=== PATIENT | male | born 1970 | race Caucasian/White ===

== ENCOUNTER 2021-02-10 21:50 | Emergency (ER) | payer OTHER ==
[~2021-02-10] VITALS: Ht 182.9 cm; Wt 102.1 kg
[~2021-02-10 21:50] MED LIST: BLOOD PRESSURE MED; LISHYD1012 PO
[2021-02-10] MEDS ORDERED: Robaxin750 MG PO (22:52)
[2021-02-10] MEDS ORDERED: IBU600 MG PO (22:52)
== END 2021-02-10 23:30 | disposition home or self-care (01) ==
LOC: ER 21:50
DX: M25.562 Pain in left knee (principal); I10 Essential (primary) hypertension; Z79.899 Other long term (current) drug therapy
CPT/HCPCS: 29505; 73560-LT; 96374-59; 96375-59; 99284-25; J1885; J3360

== ENCOUNTER 2024-04-13 07:36 | Day surgery (SDC) | payer BC ==
[~2024-04-13] VITALS: Ht 180.3 cm; Wt 107.8 kg
[~2024-04-13 07:36] MED LIST changes: +AMLO10 PO; +CHLO25B PO; +IBU600 MG PO; +LOSA50 PO; +Lactated Ringer's 1,000 ML IV SCH; +PANT40; +Robaxin750 MG PO
[2024-04-13 08:00] VITALS: BP 132/85
--- NOTE | 2024-04-13 08:12 | NUR ---
Ambulatory in Day Surgery. History, Chart, Medications and Allergies reviewed before start of procedure. Lungs clear T/O to Auscultation. Patient confirms NPO status and agrees with scheduled surgery. Patient States Post-Procedure ride home has been arranged.
[2024-04-13] MEDS ORDERED: Midazolam HCl 1MG / ML 2ML Vial ONE (08:24)
[2024-04-13] MEDS ORDERED: FentaNYL Citrate 50 MCG/ML 2 ML Injection ONE (08:25)
[2024-04-13] MEDS ORDERED: propofoL 40 ML IV ONE (08:25)
[2024-04-13] MEDS ORDERED: Benzocaine Oral Spray 0.5ML UD ONE (08:26)
--- NOTE | 2024-04-13 08:36 | NUR ---
04/13/24 0836 Abhijeet Islas History, Chart, Medications and Allergies reviewed before start of procedure. MONITOR INTACT WITH CONTINUOUS PULSE OXIMETRY, CONTINUOUS END TITAL CO2, AND INTERMITTENT BLOOD PRESSURE. 3-LEAD EKG REVIEWED WITH PHYSICIAN PRIOR TO START OF PROCEDURE. O2 VIA POM INTACT THROUGHOUT SEDATION/PROCEDURE. Bite Block Placed. HURRICAINE SPRAY TO OROPHARYX.
[2024-04-13 09:11] VITALS: BP 142/85
[2024-04-13 09:19] VITALS: BP 132/88
--- NOTE | 2024-04-13 09:34 | NUR ---
Patient up to Ambulate independently. Gait steady. Discharge instructions reviewed with patient. Patient verbalizes understanding. Copy given to patient to take home. Discharged via wheelchair to private car for ride home. ALL BELONGINGS RETURNED TO PT.
== END 2024-04-13 07:40 | disposition home or self-care (01) ==
LOC: ORSCMMR 07:36 → ORD 09:00
DX: K21.00 Gastro-esophageal reflux disease with esophagitis, without bleeding (principal); Z12.11 Encounter for screening for malignant neoplasm of colon; D12.5 Benign neoplasm of sigmoid colon; G47.33 Obstructive sleep apnea (adult) (pediatric); I10 Essential (primary) hypertension; Z79.899 Other long term (current) drug therapy
CPT/HCPCS: 88305; A9270; J2250; J2704; J3010; J7120

== ENCOUNTER → 2024-07-07 | Outpatient (CLI) | payer BC ==
[~2024-07-07] MED LIST changes: -Lactated Ringer's 1,000 ML IV SCH
[2024-07-10 18:07] LABS: CORTISOL,U FREE - RATIO TO CRT 5.23 ug/g CRT; CORTISOL,URN FREE - PER VOLUME 5.49 ug/L; CREATININE,URINE - PER 24H 2100 mg/d (800-2100); CREATININE,URINE - PER VOLUME 105 mg/dL; HOURS COLLECTED 24 hr; TOTAL VOLUME 2000 mL
== END ==
LOC: LAB SHORT 11:42 → LAB 11:42
PROVIDERS: Internal Medicine
DX: I1A.0 Resistant hypertension (principal)
CPT/HCPCS: 81050